=== PATIENT | male | born 1965 | race Caucasian/White ===

== ENCOUNTER 2018-08-11 17:14 | Emergency (ER) | payer OTHER ==
[~2018-08-11] VITALS: Ht 180.3 cm; Wt 74.8 kg
--- NOTE | 2018-08-11 17:40 | NUR ---
PT REC'D TO ER VIA [facility] PT IN CUSTODY . HAD SULFA REACTION WELTSOVER THE BACK AND ABD, BROOK UPPER LEGS RED AND HOT. NO C/O ITCHY OR PAIN AT THIS TIME. HX HTN AND HEROIN X1 CLEAN .
--- NOTE | 2018-08-11 17:45 | NUR ---
PT WAS TREATED WITH SULFA AFOR BROOK LEGS CELLUTITIS
[2018-08-11] MEDS ORDERED: IV NS 0.9% 1,000 ML BAG IV ONE (18:00)
--- NOTE | 2018-08-11 18:04 | NUR ---
RT FA 20G LABS AND CULTURES DRAWNS SENT TO LAB
[2018-08-11 18:06] LABS: BASOPHILS % (AUTO) 0.1 % (0.0-2.0); EOSINOPHILS % (AUTO) 0.3 % (0.0-6.0); HEMATOCRIT 34 % (39-51); HEMOGLOBIN 11.4 g/dL (13.5-17.5); LYMPHOCYTES # (AUTO) 0.4 /CMM (0.8-4.8); LYMPHOCYTES % (AUTO) 4.5 % (20.0-44.0); MEAN CORPUSCULAR HGB CONC 34 g/dl (31.0-36.0); MEAN CORPUSCULAR VOLUME 85 fL (80-96); MONOCYTES # (AUTO) 0.3 /CMM (0.1-1.30); MONOCYTES % (AUTO) 3.2 % (2.0-12.0); NEUTROPHILS # (AUTO) 7.4 /CMM (1.8-8.9); NEUTROPHILS % (AUTO) 91.9 % (43.0-81.0); PLATELET COUNT (AUTO) 355 /CMM (150-450); WHITE BLOOD COUNT (AUTO) 8.1 K/uL (4.3-11.0)
[2018-08-11 18:15] LABS: CALCIUM, SERUM 8.4 mg/dL (8.5-10.1); CREATININE 1.5 mg/dL (0.6-1.3); POTASSIUM 3.7 mmol/L (3.5-5.1)
[2018-08-11 18:21] LABS: C-REACTIVE PROTEIN 6.3 mg/dL (0.0-0.9)
[2018-08-11 18:29] LABS: ALBUMIN 2.6 g/dL (3.4-5.0); BILIRUBIN,TOTAL 0.6 mg/dL (0.2-1.0); TOTAL PROTEIN, SERUM 8.8 g/dL (6.4-8.2)
--- NOTE | 2018-08-11 19:21 | NUR ---
RECEIVED REPORT FROM APPLICATIONS COORDINATOR PINKY. PENDING ADMISSION. WILL CONTINUE TO MONITOR Pt's CONDITION AND SAFETY.
[2018-08-11 19:54] LABS: APPEARANCE,URINE Slightly Cloudy (CLEAR); BILIRUBIN,URINE Negative (NEGATIVE); BLOOD, URINE Large Ery/uL (NEGATIVE); KETONES,URINE Negative (NEGATIVE); LEUKOCYTE ESTERASE ,URINE Negative (NEGATIVE); NITRITE, URINE Negative (NEGATIVE); PH,URINE 7.5 (5.0-8.0); PROTEIN,URINE 100 mg/dl (NEGATIVE); UGLUCOSE Negative (NEGATIVE)
[2018-08-11 19:57] LABS: COLOR,URINE AMBER (YELLOW)
[2018-08-11 20:05] LABS: BACTERIA,URINE Few /HPF (None Seen); RBC,URINE 21-50 /HPF (0-2); SQUAMOUS EPITHELIAL CELL,UR Few /HPF (None Seen); WBC,URINE 0-2 /HPF (0-3)
[2018-08-11] MEDS ORDERED: IV NS 0.9% 1,000 ML IV PRN (20:31)
[2018-08-11] MEDS ORDERED: CLONIDINE HCL 0.1 MG TABLET ONE (20:55)
[2018-08-11] MEDS ORDERED: MAGNESIUM HYDROXIDE 30 ML UDC PO PRN (21:00)
[2018-08-11] MEDS ORDERED: diphenhydrAMINE HCL 50 MG/ML VIAL IV PRN (21:00)
[2018-08-11] MEDS ORDERED: CLONIDINE HCL 0.1 MG TABLET PO ONE (21:00)
[2018-08-11] MEDS ORDERED: Z GUARD REMEDY 2 OZ OINT TP PRN (21:00)
[2018-08-11] MEDS ORDERED: MAG HYDROX/AL HYDROX/SIMETH 30 ML UDC PO PRN (21:00)
[2018-08-11] MEDS ORDERED: LORAZEPAM INJ 2 MG/ML VIAL IV PRN (21:00)
[2018-08-11] MEDS ORDERED: ONDANSETRON HCL/PF 4 MG/2 ML VIAL IVP PRN (21:00)
[2018-08-11] MEDS ORDERED: ACETAMINOPHEN 325 MG TABLET PO PRN (21:00)
[2018-08-11] MEDS ORDERED: HYDROCODONE/APAP 5/325MG 1 EACH TABLET PO PRN (21:00)
[2018-08-11] MEDS ORDERED: ZOLPIDEM TARTRATE 5 MG TABLET PO PRN (21:00)
[2018-08-11] MEDS ORDERED: HYDROMORPHONE INJ 2 MG/ML DISP.SYRIN IV PRN (21:00)
[2018-08-11 21:11] VITALS: BP 162/102
--- NOTE | 2018-08-11 21:13 | NUR ---
ALL ORDERED MEDS GIVEN.
--- NOTE | 2018-08-11 21:30 | NUR ---
REPORT GIVEN TO SONIA MEDRANO FOR ADMISSION
--- NOTE | 2018-08-11 22:26 | NUR ---
Patient does not wish to proceed with medical care recommended by Dr. WARD. Patient given information related to possible complications, up to and including , which could occur as a result of leaving the hospital at this time. Patient verbalizes understanding of risks involved due to leaving against medical advice. Patient has signed AMA form. IV removed. Catheter intact and site benign. Pressure and 4x4 applied to site. No bleeding noted. Addendum: 08/11/18 at 2227 by HFOX REFUSED DC VITALS Addendum: 08/11/18 at [address] WAN DID NOT SPEAK WITH PT HOWEVER RISKS OF LEAVING THE HOSPITAL AGAINST MEDICAL ADVICE WERE REVIEWED WITH PT BY MYSELF, BLOW MOULDING MACHINE OPERATOR.
--- NOTE | 2018-08-11 22:50 | NUR ---
DR WAN WAS UNAVAILABLE, IN A CRITICAL PATIENT'S ROOM PERFORMING PROCEDURES, AT THE TIME PT WANTED TO LEAVE AMA AND PT WAS UNWILLING TO WAIT FOR MD.
[2018-08-12] MEDS ORDERED: LANOLIN/MIN OIL/PETROLAT,WHT 3.5 GM TUBE EACHEYE SCH
[2018-08-12] MEDS ORDERED: PANTOPRAZOLE 40 MG TABLET.DR PO SCH (07:30)
== END 2018-08-11 22:36 | disposition left against medical advice (07) ==
LOC: ER 17:18
DX: L51.1 Stevens-Johnson syndrome (principal); I10 Essential (primary) hypertension; Z88.2 Allergy status to sulfonamides
CPT/HCPCS: 36415; 71045; 80053; 80305; 81001; 85025; 85652; 85730; 86140; 87040 ×2; 87806; 99284; A4606; J7030; 81000-TC; 87081-TC; J7502